=== PATIENT | female | born 1970 | race Caucasian/White ===

== ENCOUNTER 2018-04-08 00:29 | Emergency (ER) | payer OTHER ==
[2018-04-08 00:47] VITALS: BP 131/69; PULSE 98; TEMP 98.6; BMI 36.0
--- NOTE | 2018-04-08 01:07 | PDOC ---
History of Present Illness - General Chief Complaint: Allergic Reaction Stated Complaint: NUMBNESS Time Seen by Provider: 04/08/18 00:54 - History of Present Illness Initial Comments: 04/08/18 01:02 CHIEF COMPLAINT: tingling to arms HISTORY OF PRESENT ILLNESS: 47 yo F with recent hx of h. Pylori infection and UTI presents to ED with "tingling to back of arms" s/p eating [place] food tonight. Patient reports that she felt some "weird sensation" to the back of her arms shortly after eating [place] food tonight, "but I feel much better now. " Patient denies any SOB, chest pain, palpitations, headache, dizzines, nausea. Patient states "I have to go back to my primary care doctor anyway to f /u on my UTI, so I can just go to him tomorrow." No recent travel or sick contacts. PAST MEDICAL HISTORY: Denies past medical history FAMILY HISTORY: Denies SOCIAL HISTORY: Denies tobacco, alcohol, illicit drug use. SURGICAL HISTORY: Denies ALLERGIES: PCN REVIEW OF SYSTEMS General/Constitutional: Denies fever or chills. Denies weakness, weight change. HEENT: Denies change in vision. Denies ear pain or discharge. Denies sore throat. Cardiovascular: Denies chest pain or shortness of breath. Respiratory: Denies cough, wheezing, or hemoptysis. Gastrointestinal: Denies nausea, vomiting, diarrhea or constipation. Denies rectal bleeding. Genitourinary: Denies dysuria, frequency, or change in urination. Musculoskeletal: "Tingling to arms earlier, now resolved." Denies joint or muscle swelling or pain. Denies neck or back pain. Skin and breasts: Denies rash or easy bruising. Neurologic: Denies headache, vertigo, loss of consciousness, or loss of sensation. Psychiatric: Denies depression or anxiety. PHYSICAL EXAM General Appearance: Well-appearing, appropriately dressed. No apparent distress. HEENT: EOMI, PERRLA, normal ENT inspection, normal voice, TMs normal, pharynx normal. No conjunctival pallor. No photophobia, scleral icterus. Neck: Supple. Trachea midline. No tenderness, rigidity, carotid bruit, stridor , lymphadenopathy, or thyromegaly. Respiratory/Chest: Lungs CTAB. No shortness of breath, chest tenderness, respiratory distress, accessory muscle use. No crackles, rales, rhonchi, stridor , wheezing, dullness Cardiovascular: RRR. S1, S2. No JVD, murmur, bradycardia, tachycardia. Vascular Pulses: Dorsalis-Pedis (R): 2+, Dorsalis-Pedis (L): 2+ Gastrointestinal/Abdominal: Normal bowel sounds. Abdomen soft, non-distended. No tenderness or rebound tenderness. No organomegaly, pulsatile mass, guarding , hernia, hepatomegaly, splenomegaly. Lymphatic: No adenopathy, tenderness. Musculoskeletal/Extremities: Normal inspection. FROM of all extremities, normal capillary refill. Pelvis Stable. No CVA tenderness. No tenderness to extremities, pedal edema, swelling, erythema or deformity. Integumentary: Appropriate color, dry, warm. No cyanosis, erythema, jaundice or rash Neurologic: salesperson stereo equipment II-XII intact. Fully oriented, alert. Appropriate mood/affect. Motor strength 5/5. No appreciable EOM palsy, facial droop or sensory deficit. Past History - Past Medical History Allergies/Adverse Reactions: Allergies Allergy/AdvReac Type Severity Reaction Status Date / Time Penicillins Allergy Mild Verified 04/08/18 00:35 Home Medications: Ambulatory Orders No Home Medications 0 dose .ROUTE UTDICT 07/27/12 Mag Hydrox/Al Hydrox/Simeth [Mylanta Liq] 30 ml PO BID PRN #120 oral.susp Phenobarb/Hyoscy/Atropine/Scop [ Elixir] 16.2 mg PO DAILY #0 ml Famotidine [Pepcid] 20 mg PO BID PRN #20 tablet 04/08/18 COPD: No GI Disorders: Yes (cholelythiasis) - Surgical History Cholecystectomy: Yes - Suicide/Smoking/Psychosocial Hx Smoking Status: No Smoking History: Never smoked Number of Cigarettes Smoked Daily: 0 Hx Alcohol Use: No (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 Pylori infection and UTI presents to ED with "tingling to back of arms" s/p eating [place] food tonight. Patient states she does not feel that she needs an EKG or cardiac workup now because she feels better at this time and is following up with PCP tomorrow. *DC/Admit/Observation/Transfer Diagnosis at time of Disposition: Tingling of both upper extremities - Discharge Dispostion Disposition: HOME Condition at time of disposition: Stable Decision to Admit order: No - Prescriptions Prescriptions: Famotidine [Pepcid] 20 mg PO BID PRN #20 tablet PRN Reason: Dyspepsia - Referrals Referrals: Sami Mercado [Primary Care Provider] - - Patient Instructions Printed Discharge Instructions: DI for Numbness/tingling, DI for Gastroesophageal Reflux Disease (GERD) - Post Discharge Activity
[2018-04-08] MEDS ORDERED: RANITIDINE HCL 150 MG TABLET (FP) PO ONE (01:18)
[2018-04-08] MEDS ORDERED: RANITIDINE HCL 150 MG TABLET (FP) ONE (01:19)
--- NOTE | 2018-04-08 01:22 | PDOC ---
*Physical Exam - Vital Signs Last Vital Signs Temp Pulse Resp BP Pulse Ox 98.6 F 98 H 18 131/69 97 04/08/18 00:33 04/08/18 00:33 04/08/18 00:33 04/08/18 00:33 04/08/18 00:33 Medical Decision Making - Medical Decision Making 04/08/18 01:22 Pt seen by Midlevel Provider under my direct supervision Pt interviewed and examined Ancillary studies reviewed I agree with plan as outlined by Midlevel Provider *DC/Admit/Observation/Transfer Diagnosis at time of Disposition: Tingling of both upper extremities - Discharge Dispostion Disposition: HOME Condition at time of disposition: Stable - Prescriptions Prescriptions: Famotidine [Pepcid] 20 mg PO BID PRN #20 tablet PRN Reason: Dyspepsia - Referrals Referrals: Sami Mercado [Primary Care Provider] - - Patient Instructions Printed Discharge Instructions: DI for Gastroesophageal Reflux Disease (GERD), DI for Numbness/tingling - Post Discharge Activity
== END 2018-04-08 01:30 | disposition home or self-care (01) ==
LOC: JER 00:29
DX: R20.2 Paresthesia of skin (principal); Z86.19 Personal history of other infectious and parasitic diseases; Z87.440 Personal history of urinary (tract) infections
CPT/HCPCS: 99282-25